=== PATIENT | male | born 1955 | race Two or more races ===

== ENCOUNTER 2024-10-20 18:56 | Emergency (ER) | payer MEDICAID, OTHER ==
[~2024-10-20] VITALS: Ht 172.7 cm; Wt 88.0 kg
[2024-10-20] MEDS ORDERED: CALCIUM CHLOR(10%) 100MG/ML 10ML SYRINGE IV ONE (18:57)
--- NOTE | 2024-10-20 19:33 | ED.PDOC ---
CPR-HPI HPI Comments 69 year old male presents to the ED via EMS with a chief complaint of cardiac arrest onset today (10/20/24). Per EMS, patient was living with a friend, was unresponsive, 911 was called. Down time prior to EMS arrival was about 5 minutes, total down time prior to ED arrival was about 25 minutes. Patient was intubated in route, 7.0 ETT 22 cm at teeth, IO on LLE was placed. He was given 5 rounds of Epinephrine, 600 mL NS in route to ED. Upon EMS arrival patient was asystole, after 1 round of EPI patient was PEA. Upon ED arrival BS was 198, rectal temperature 94.8 F. CPR was continued, TOD was called at 19:20. Chief Complaint: CPR Time Seen by MD: 18:59 Reviewed Notes: Medications, Allergies Allergies: Coded Allergies: UNOBTAINABLE (Unverified , 10/20/24) Information Source: Emergency Med Personnel Mode of Arrival: EMS Timing: Minutes Duration: Down time prior EMS: (5 minutes), Total time prior hopital: (25 minutes) Onset: At rest Available Hx: Prior Cardiac Disease Inital rhythm: Asystole Treatment: CPR, Intubation, Epinephrine Response: No response Past Medical History PAST MEDICAL HISTORY: COPD, Unknown Surgical History: Unknown Surgical History (Other): LT leg amputation Family History Family History: Unknown Social History Smoker: Unknown Alcohol: Unknown Drugs: Unknown Lives In: Home Unable to Obtain due to: Medical Urgency, Intubated Physical Exam General Appearance: Thin, Other (gravely ill ashen appearance) HEENT: Head, Pale Conjuntivae (L) (pupils fixed and dilated), Pale Conjuntivae (R), Other Neck: Supple, Other (no carotid pulse , + JVD) Respiratory: Other (no spontaneous respirations, clear breath sounds bilaterally with bagging) Cardiovascular: Other (no palpable pulses, 2+ edema RLE) Breast Exam: Normal Gastrointestinal: Other (soft, old ex lap scar noted) Genitalia: Normal Pelvic: Deferred, None Rectal: Rectal Exam not done Extremities: Other (left AKA, right partial foot amputation, cool , ashen) Neurologic: Other (unresponsive, no blink reflex, no gag, no spont respirations) Cerebellar Function: NOT DONE Reflexes: None Skin: Mottled, Pallor Lymphatic: None, No Adenopathy Was a procedure done? Was a procedure done?: No Differential Dx CPR Differential Diagnosis: Cardiopulmonary arrest, Cardiac Tamponade, Cardiogenic shock, Dysrhythmia, Electrolyte disorder, Heart Block, Myocardial Infarction, Pneumothorax, Pulmonary Embolus, Respiratory Failure, Ruptured Aortic Aneurysm, Other X-Ray, Labs, Meds, VS Vital Signs Date Time Temp Pulse Resp B/P (MAP) Pulse Ox O2 Delivery O2 Flow Rate FiO2 10/20/24 19:40 94.8 134 10 94.8 Time of 1ST Reevaluation: 19:20 Reevaluation 1ST: Patient Education/Counseling: Pt Unresponsive Family Education/Counseling: No Family Present Departure 1 Departure Time of Disposition: 19:20 Impression: Primary Impression: Cardiopulmonary arrest Disposition: 20 Condition: Other () Critical Care Note Critical Care Time?: Yes (35 min-critical care time only) Critical care comment: Total critical care time: Approximately 36 minutes Due to a high probability of clinically significant, life threatening deterioration, the patient required my highest level of preparedness to intervene emergently and I personally spent this critical care time directly and personally managing the patient. This critical care time included obtaining a history; examining the patient; pulse oximetry; ordering and review of studies; arranging urgent treatment with development of a management plan; evaluation of patient's response to treatment; frequent reassessment; and, discussions with other providers. This critical care time was performed to assess and manage the high probability of imminent, life-threatening deterioration that could result in multi-organ failure. It was exclusive of separately billable procedures and treating other patients. Heart Score Heart Score: Heart Score Response (Comments) Value History N/A 0 EKG N/A 0 Age N/A 0 Risk Factors N/A 0 Troponin N/A 0 Total 0 Stability Stability form required: No I personally scribed for DIOMEDES LOUIS MD ([email or web address]) on 10/20/24 at 19:33. Electronically submitted by Huma Ang ([email or web address]). I personally scribed for DIOMEDES LOUIS MD ([email or web address]) on 10/20/24 at 19:34. Electronically submitted by Huma Ang ([email or web address]). DIOMEDES LOUIS MD Oct 20, 2024 19:33
[2024-10-20 19:40] VITALS: PULSE 134; RESP 10; TEMP 94.8
--- NOTE | 2024-10-21 03:47 | RESUS ---
CODE BLUE ASSESSSMENT History of Events History of Events: Secured code blue ROSALINA. Pt was found unresponsive at home by friend for 25 mins. Intubated prior to arrival and 5 rounds of epi were given. Initial Information Date: Oct 20, 2024 Time: 18:59 Location of Arrest: In Field Arrest Witnessed: No CPR started initial time: 18:40 CPR started by whom: EMS Pre-Hospital Care: ACLS Type of arrest: Cardiac, Adult, Unwitnessed Spontaneous Respirations: No Pulse Present: No Monitoring: ECG, Pulse Oximetry, Telemetry Crash Cart Opened and Supplies: Yes Airway Ventilation Breathing at Onset: Assisted O2 Sat by Pulse Oximetry: 98 Oxygen Delivery Method: Ambu-Bag Time of first Assisted Ventila: 18:59 (Brought in intubated, started in field. ) Artificial Ventilation: Bag/Endo tube Intubation Size: 7.0 cuffed Intubated by: EMS Intubated orally: Yes Tube secured at: 22 (@ teeth) CO2 indicator used: Yes Confirmation: Auscultation Suctioning (Oral/Tracheal): Yes Circulation Circulation #1: Time: 18:59 Pulse Rate (adult): 110 Circulation Comment: PEA Circulation #2: Time: 19:01 Pulse Rate (adult): 109 Circulation Comment: PEA Circulation #3: Time: 19:03 Pulse Rate (adult): 101 Circulation Comment: PEA Circulation #4: Time: 19:05 Pulse Rate (adult): 110 Circulation Comment: PEA Circulation #5: Time: 19:07 Pulse Rate (adult): 107 Circulation Comment: PEA Circulation #6: Time: 19:09 Pulse Rate (adult): 104 Circulation Comment: PEA Circulation #7: Time: 19:12 Pulse Rate (adult): 110 Circulation Comment: ROSC Pulse present, No blood pressure, started on levo @ 2. Circulation #8: Time: 19:20 Circulation Comment: Patient began to maximilian down, and pulse was no longer present. TOD pronounced by Dr. Carrillo Procedure - IV Procedure - IV #1: IV Side: Left IV Location: Antecubital IV Placed: Pre-Hospital IV Gauge: 20 IV Line Care: Saline Flush Comment Prior to arrival Procedure - IV #2: IV Side: Right IV Location: Lower Leg IV Catheter Type: EMS Field Start (Intraosseous) IV Placed: Pre-Hospital Medications & Response Medications and Responses #1: Medication Time: 19:02 ADULT Medications Given ADULT: Epinephrine 1 mg, Sodium Bacarbinate 50 meq, Calcium Chloride 10 mL Route of Administration: IV Heart Rate: 110 EKG Rhythm: PEA Blood Pressure Systolic: 0 Blood Pressure Diastolic: 0 EKG Rhythm: PEA Medications and Responses #2: Medication Time: 19:05 ADULT Medications Given ADULT: Epinephrine 1 mg Route of Administration: IV Heart Rate: 107 EKG Rhythm: PEA EKG Rhythm: PEA Medications and Responses #3: Medication Time: 19:08 ADULT Medications Given ADULT: Epinephrine 1 mg Route of Administration: IV Heart Rate: 107 EKG Rhythm: PEA EKG Rhythm: PEA Medications and Responses #4: Medication Time: 19:11 ADULT Medications Given ADULT: Epinephrine 1 mg Route of Administration: IV Heart Rate: 107 EKG Rhythm: PEA EKG Rhythm: PEA Nurses Notes Sonya Coma Scale Eye Opening: None (1) Sonya Coma Scale Verbal: None (1) [place] Coma Scale Motor: None (1) EKG Rhythm: PEA Time Code Ended Post Arrest Status: Outcome of code: Unsuccessful Patient pronounced by: Dr. Carrillo Time patient pronounced: 19:20 Family notified: No (Coroners case) Attending called: No (n/a) Code Team Present: Dr. Lorena Zavaleta ER Charge Emmett RT Jose Guadalupe Collado RN H/S [facility] EMT [place] EMT Post Resuscitation Neurologica Pupil Size: 3 Comment: pinpoint ROSC Time of ROSC: 19:12 (Pt then deteriorated at 1920 and TOD was pronounced. ) JOHN LÓPEZ Oct 21, 2024 03:46
== END 2024-10-20 19:20 ==
LOC: ER 18:56 → EDBD 18:56 → ER 19:20
DX: I46.9 Cardiac arrest, cause unspecified (principal); J44.9 Chronic obstructive pulmonary disease, unspecified; F17.200 Nicotine dependence, unspecified, uncomplicated
CPT/HCPCS: 82947; 92950; 99285; J0171